=== PATIENT | male | born 1965 | race Caucasian/White ===

== ENCOUNTER 2018-10-08 23:38 | Emergency (ER) | payer SELFPAY ==
[~2018-10-08] VITALS: Ht 180.3 cm; Wt 115.7 kg
[2018-10-08 23:43] VITALS: BP 131/85
[2018-10-09] MEDS ORDERED: KETOROLAC 60 MG/2 ML VIAL IM ONE (00:20)
[2018-10-09 00:40] VITALS: BP 131/85
== END 2018-10-09 00:40 | disposition home or self-care (01) ==
LOC: MED 23:38
DX: S83.91XA Sprain of unspecified site of right knee, initial encounter (principal); W22.8XXA Striking against or struck by other objects, initial encounter; Y93.89 Activity, other specified; Y92.830 Public park as the place of occurrence of the external cause; Y99.8 Other external cause status
CPT/HCPCS: 29505; 73562; 96372; 99283; J1885; Q0092